=== PATIENT | female | born 1975 | race American Indian/Alaskan Native ===

== ENCOUNTER 2020-08-29 08:45 | Emergency (ER) | payer OTHER ==
[2020-08-29] MEDS ORDERED: dexAMETHasone 20 MG/5 ML VIAL IV ONE (09:03)
[2020-08-29] MEDS ORDERED: IPRATROPIUM 0.02% NEBU 2.5 ML IH ONE (09:03)
[2020-08-29] MEDS ORDERED: ALBUTEROL 2.5 MG/3 ML NEBU IH ONE (09:03)
--- NOTE | 2020-08-29 09:08 | Emergency Department Report ---
ED Shortness of Breath HPI - General Chief Complaint: Dyspnea/Respdistress Stated Complaint: ASTHMA Time Seen by Provider: 08/29/20 09:03 Source: patient Mode of arrival: Ambulatory Limitations: No Limitations - History of Present Illness Initial Comments: 44-year-old morbid obese -[place] female with employee here recently onset of shortness of breath. Patient states that it kind of started with a sinus issues this week but today she took some Sudafed and her multivitamins. She was able to get to work started working and then sudden onset of shortness of breath. Patient states that her chest feels tight. She denies any fever or chills. She states she has never been intubated never has been hospitalized for her asthma. Patient has a past medical history of GERD asthma and arthritis. MD Complaint: shortness of breath -: This morning Pain Scale: 6 Consistency: constant Improves With: nothing Known History Of: asthma, other (GERD) Treatments Prior to Arrival: bronchodilator - Related Data Home Oxygen Therapy: No Home Medications Medication Instructions Recorded Confirmed Last Taken Beclomethasone Dipropionate [Qnasl 1 spray INNOSTRIL DAILY 04/26/13 04/26/13 04/26/13 Nasal 80mcg/inhal] Cetirizine HCl [Zyrtec] 1 tab PO DAILY 04/26/13 04/26/13 04/26/13 Mometasone/Formoterol [Dulera 100 1 inhalation INHALATION DAILY 04/26/13 04/26/13 04/26/13 Mcg/5 Mcg Inhaler] Omalizumab [Xolair] 150 mg SC QMONTH 04/26/13 04/26/13 04/06/13 Previous Rx's Medication Instructions Recorded Last Taken Type Prednisone [predniSONE 10 mg 10 mg PO .TAPER #1 tab.ds.pk 08/29/20 Unknown Rx (6-Day Pack, 21 Tabs)] Allergies Allergy/AdvReac Type Severity Reaction Status Date / Time NSAIDS (Non-Steroidal Allergy Anaphylaxis Verified 08/29/20 08:54 Anti-Inflamma ED Review of Systems ROS: Stated complaint: ASTHMA Other details as noted in HPI Comment: All other systems reviewed and negative ED Past Medical Hx - Past Medical History Previous Medical History?: Yes Hx GERD: Yes Hx Arthritis: Yes Hx Asthma: Yes - Surgical History Past Surgical History?: Yes Additional Surgical History: nasal surgery - Social History Smoking Status: Never Smoker - Medications Home Medications: Home Medications Medication Instructions Recorded Confirmed Last Taken Type Beclomethasone Dipropionate [Qnasl 1 spray INNOSTRIL DAILY 04/26/13 04/26/13 04/26/13 History Nasal 80mcg/inhal] Cetirizine HCl [Zyrtec] 1 tab PO DAILY 04/26/13 04/26/13 04/26/13 History Mometasone/Formoterol [Dulera 100 1 inhalation INHALATION DAILY 04/26/13 04/26/13 04/26/13 History Mcg/5 Mcg Inhaler] Omalizumab [Xolair] 150 mg SC QMONTH 04/26/13 04/26/13 04/06/13 History Prednisone [predniSONE 10 mg 10 mg PO .TAPER #1 tab.ds.pk 08/29/20 Unknown Rx (6-Day Pack, 21 Tabs)] ED Physical Exam - General Limitations: No Limitations General appearance: alert, in no apparent distress, other (Difficulty speaking in full sentence secondary to shortness of breath) - Head Head exam: Present: atraumatic, normocephalic - Eye Eye exam: Present: normal appearance - ENT ENT exam: Present: mucous membranes moist, normal external ear exam - Neck Neck exam: Present: normal inspection, full ROM - Respiratory Respiratory exam: Present: respiratory distress, wheezes, accessory muscle use, prolonged expiratory. Absent: chest wall tenderness - Cardiovascular Cardiovascular Exam: Present: tachycardia - GI/Abdominal GI/Abdominal exam: Present: soft. Absent: distended, tenderness - Extremities Exam Extremities exam: Present: normal inspection - Back Exam Back exam: Present: normal inspection - Neurological Exam Neurological exam: Present: alert, oriented X3, normal gait - Psychiatric Psychiatric exam: Present: normal affect, normal mood - Skin Skin exam: Present: warm, dry, intact, normal color. Absent: rash ED Course Vital Signs 08/29/20 08:48 Temperature 98.2 F Pulse Rate 118 H Respiratory 20 Rate Blood Pressure 149/104 [Right] O2 Sat by Pulse 95 Oximetry - Reevaluation(s) Reevaluation #1: 08/29/20 10:21 Reevaluation of patient with lungs that are clearing. Patient reports that she feels much better. She is moving air less use of accessory muscles. ED Medical Decision Making - Medical Decision Making 44-year-old morbid obese -[place] female with employee here recently onset of shortness of breath. Patient states that it kind of started with a sinus issues this week but today she took some Sudafed and her multivitamins. She was able to get to work started working and then sudden onset of shortness of breath. Patient states that her chest feels tight. She denies any fever or chills. She states she has never been intubated never has been hospitalized for her asthma. Patient has a past medical history of GERD asthma and arthritis. Patient was given Atrovent 1 mg, albuterol 10 mg inhalation. Patient was given dexamethasone 10 mg IM. Critical care attestation.: If time is entered above; I have spent that time in minutes in the direct care of this critically ill patient, excluding procedure time. ED Disposition Clinical Impression: Asthma exacerbation Disposition: DC- TO HOME OR SELFCARE Is pt being admited?: No Does the pt Need Aspirin: No Condition: Stable Instructions: Asthma, Adult, [id number] Additional Instructions: Please complete your prednisone taper. Like for you to rest for the next 24 hours and continue with your nebulizer treatments at home as needed. Make an appointment to your primary care provider to follow-up. Prescriptions: Prednisone [predniSONE 10 mg (6-Day Pack, 21 Tabs)] 10 mg PO .TAPER #1 tab.ds.pk Referrals: Your, primary care provider [Other] - 3-5 Days Forms: Work/School Release Form(ED)
[2020-08-29 10:35] VITALS: BP 152/86
== END 2020-08-29 10:42 | disposition home or self-care (01) ==
LOC: ED 08:45
DX: J45.901 Unspecified asthma with (acute) exacerbation (principal); K21.9 Gastro-esophageal reflux disease without esophagitis; M19.90 Unspecified osteoarthritis, unspecified site; Z79.899 Other long term (current) drug therapy; Z98.890 Other specified postprocedural states
CPT/HCPCS: 94640; 96374; 99283; J1100; 94644

== ENCOUNTER 2021-04-25 09:39 | Emergency (ER) | payer OTHER ==
--- NOTE | 2021-04-25 11:13 | Emergency Department Report ---
ED General Adult HPI - General Chief complaint: High BP Stated complaint: BLOOD EXPOSURE Time Seen by Provider: 04/25/21 10:06 Source: patient Mode of arrival: Ambulatory Limitations: No Limitations - History of Present Illness Initial comments: This is a 45-year-old female nontoxic, well nourished in appearance, no acute signs of distress presents to the ED with c/o of elevated blood pressure and exposure to blood. 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 Patient stated that after she took her clothes off and wash herself. Patient otherwise denies any puncture wounds or blood exposure to eyes, ears, mouth, or any open areas. Patient stated that when this occurred the charge nurse took her blood pressure and was elevated which is why she brought to the emergency room. Otherwise patient denies any symptoms or complaints. Patient denies any history of hypertension. Patient denies any chest pain, shortness of breath, fever, chills, headache, stiff neck, numbness, tingling. -: This morning Severity scale (0 -10): 0 Improves with: none Worsens with: none Associated Symptoms: denies other symptoms. denies: confusion, chest pain, cough, diaphoresis, fever/chills, headaches, loss of appetite, malaise, nausea/vomiting, rash, seizure, shortness of breath, syncope, weakness Treatments Prior to Arrival: none - Related Data Home Medications Medication Instructions Recorded Confirmed Last Taken Beclomethasone Dipropionate [Qnasl 1 spray INNOSTRIL DAILY 04/26/13 04/26/13 04/26/13 Nasal 80mcg/inhal] Cetirizine HCl [Zyrtec] 1 tab PO DAILY 04/26/13 04/26/13 04/26/13 Mometasone/Formoterol [Dulera 100 1 inhalation INHALATION DAILY 04/26/13 04/26/13 04/26/13 Mcg/5 Mcg Inhaler] Omalizumab [Xolair] 150 mg SC QMONTH 04/26/13 04/26/13 04/06/13 Previous Rx's Medication Instructions Recorded Last Taken Type Prednisone [predniSONE 10 mg 10 mg PO .TAPER #1 tab.ds.pk 08/29/20 Unknown Rx (6-Day Pack, 21 Tabs)] Allergies Allergy/AdvReac Type Severity Reaction Status Date / Time NSAIDS (Non-Steroidal Allergy Anaphylaxis Verified 04/25/21 09:49 Anti-Inflamma ED Review of Systems ROS: Stated complaint: BLOOD EXPOSURE Other details as noted in HPI Comment: All other systems reviewed and negative Constitutional: denies: chills, fever Eyes: denies: eye pain, eye discharge, vision change ENT: denies: ear pain, throat pain Respiratory: denies: cough, shortness of breath, wheezing Cardiovascular: denies: chest pain, palpitations Endocrine: no symptoms reported Gastrointestinal: denies: abdominal pain, nausea, diarrhea Genitourinary: denies: urgency, dysuria, discharge Musculoskeletal: denies: back pain, joint swelling, arthralgia Skin: denies: rash, lesions Neurological: denies: headache, weakness, paresthesias Psychiatric: denies: anxiety, depression Hematological/Lymphatic: denies: easy bleeding, easy bruising ED Past Medical Hx - Past Medical History Hx GERD: Yes Hx Arthritis: Yes Hx Asthma: Yes - Surgical History Additional Surgical History: nasal surgery - Social History Smoking Status: Never Smoker - Medications Home Medications: Home Medications Medication Instructions Recorded Confirmed Last Taken Type Beclomethasone Dipropionate [Qnasl 1 spray INNOSTRIL DAILY 04/26/13 04/26/13 04/26/13 History Nasal 80mcg/inhal] Cetirizine HCl [Zyrtec] 1 tab PO DAILY 04/26/13 04/26/13 04/26/13 History Mometasone/Formoterol [Dulera 100 1 inhalation INHALATION DAILY 04/26/13 04/26/13 04/26/13 History Mcg/5 Mcg Inhaler] Omalizumab [Xolair] 150 mg SC QMONTH 04/26/13 04/26/13 04/06/13 History Prednisone [predniSONE 10 mg 10 mg PO .TAPER #1 tab.ds.pk 08/29/20 Unknown Rx (6-Day Pack, 21 Tabs)] ED Physical Exam - General Limitations: No Limitations General appearance: alert, in no apparent distress - Head Head exam: Present: atraumatic, normocephalic - Eye Eye exam: Present: normal appearance, PERRL Pupils: Present: normal accommodation - ENT ENT exam: Present: normal exam, normal orophraynx, mucous membranes moist, TM's normal bilaterally - Neck Neck exam: Present: normal inspection, full ROM. Absent: tenderness, meningismus, lymphadenopathy - Respiratory Respiratory exam: Absent: respiratory distress - Cardiovascular Cardiovascular Exam: Present: normal rhythm - Extremities Exam Extremities exam: Present: full ROM - Back Exam Back exam: Present: full ROM - Neurological Exam Neurological exam: Present: alert, oriented X3, normal gait - Psychiatric Psychiatric exam: Present: normal affect, normal mood - Skin Skin exam: Present: warm, dry, intact, normal color. Absent: rash ED Course Vital Signs 04/25/21 04/25/21 09:47 11:16 Temperature 98.9 F 97.7 F Pulse Rate 111 H 104 H Respiratory 14 16 Rate Blood Pressure 135/98 151/99 [Left] O2 Sat by Pulse 100 99 Oximetry - Reevaluation(s) Reevaluation #1: 04/25/21 11:18 Patient is speaking in full sentences with no signs of distress noted. - Consultations Consultation #1: 04/25/21 11:16 Tayla primer charger notified of the patient's history and physical exam and stated as per protocol due to no contamination of blood to open areas no further blood testing or evaluation of the L/D patient to be done at this time. ED Medical Decision Making - Medical Decision Making 45-year-old female that presents with concerns of hypertension and blood exposure contact. Patient is stable and was examined by me. As per primer charger there is no protocol to be done at this time. Patient's blood pressure is not significantly abnormal. Patient is notified of taking blood pressure 3 times a day and to present to primary care doctor in 3 to 5 days. Patient was instructed to follow-up with a primary care doctor in 3-5 days or if symptoms worsen and continue return to emergency room as soon as possible. At time of discharge, the patient does not seem toxic or ill in appearance. No acute signs of distress noted. Patient agrees to discharge treatment plan of care. No further questions noted by the patient. Critical care attestation.: If time is entered above; I have spent that time in minutes in the direct care of this critically ill patient, excluding procedure time. ED Disposition Clinical Impression: Exposure to blood or body fluid Disposition: HOME / SELF CARE / HOMELESS Is pt being admited?: No Does the pt Need Aspirin: No Condition: Stable Instructions: Body Fluid Exposure Information, Preventing Hypertension Additional Instructions: Follow-up with a primary care doctor in 3-5 days or if symptoms worsen and continue return to emergency room as soon as possible. Referrals: PRIMARY CARE, [Primary Care Provider] - 3-5 Days DWIGHT RUSSO MD [Staff Physician] - 3-5 Days Time of Disposition: 11:20
[2021-04-25 11:17] VITALS: BP 151/99
== END 2021-04-25 11:37 | disposition home or self-care (01) ==
LOC: ED 09:39 → EEVIPCON 09:39 → ED 11:37
DX: Z77.21 Contact with and (suspected) exposure to potentially hazardous body fluids (principal); R03.0 Elevated blood-pressure reading, without diagnosis of hypertension; Z88.6 Allergy status to analgesic agent; J45.909 Unspecified asthma, uncomplicated
CPT/HCPCS: 99282